=== PATIENT | male | born 1995 | race Caucasian/White ===

== ENCOUNTER 2018-06-02 13:22 | Emergency (ER) | payer BC ==
[2018-06-02 13:29] VITALS: BP 144/76
[2018-06-02] MEDS ORDERED: IBUPROFEN 600 MG TAB PO ONE (13:50)
--- NOTE | 2018-06-02 13:55 | EDPHY ---
H & P Time Seen by Provider: 06/02/18 13:38 HPI/ROS: CHIEF COMPLAINT: Fever HISTORY OF PRESENT ILLNESS: Patient did get a staple in his left index finger loose last week on Tuesday and he thought it might be related. On Tuesday started with a headache and some diffuse myalgias and body achiness associated with a nonproductive cough and a sore throat and congestion was started the next day. Today he has chills and still has a fever and he wondered if it was related to the stable. He does not have redness or swelling in the finger or hand. The index finger is a little bit swollen at the tip but does not look abnormal. REVIEW OF SYSTEMS: Eye: no change in vision ENT: HPI Cardiac: no chest pain or syncope Pulmonary: HPI not short of breath and no hemoptysis Abdomen: no vomiting, diarrhea, abdominal pain Musculoskeletal: Myalgias but no neck stiffness Skin: no rash Neuro: HPI Constitutional: HPI : no urinary symptoms A comprehensive 10 point review of systems is otherwise negative aside from elements mentioned in the history of present illness. PAST MEDICAL HISTORY: Negative Social history: No recent travel or IV drug abuse General Appearance: Alert and conversant, cooperative. Eyes: No scleral icterus. ENT, Mouth: Normal mucous membranes. Normal pharynx without trismus or erythema uvula is midline. Respiratory: Normal respiratory effort, breath sounds equal, lungs are clear to auscultation. Speaks in full sentences. Cardiovascular: Regular rate and rhythm. Gastrointestinal: Abdomen is soft and non tender. Neurological: Alert, face symmetric, normal motor and sensory in extremities. Skin: Warm and dry, no rashes. The index finger is not red or swollen or hot to the touch. He can make a fist. There is no lymphangitis. Puncture site is not draining any fluid. Musculoskeletal: Normal range of motion of the neck, supple Psychiatric: Not agitated. Emergency Department course/MDM: Patient presents with symptoms more likely to be viral syndrome or even quite possibly influenza. I think the puncture wound to his left hand is not related to his symptoms today and I think that likelihood of infection or systemic sepsis or endocarditis or meningitis is low. I discussed with the patient he could have influenza and we discussed risk benefit alternatives of oral Tamiflu treatment. He would prefer to be treated with Tylenol Motrin and oral fluids which I think is reasonable as he does not have comorbidities which would be hard indication for antiviral treatment. Smoking Status: Never smoked Constitutional: Initial Vital Signs Temperature (C) 37.9 C 06/02/18 13:25 Heart Rate 86 06/02/18 13:25 Respiratory Rate 18 06/02/18 13:25 Blood Pressure 144/76 H 06/02/18 13:25 O2 Sat (%) 95 06/02/18 13:25 O2 Delivery Mode Room Air Allergies/Adverse Reactions: Cephalosporins Allergy (Verified 06/02/18 13:25) Home Medications: Medication Instructions Recorded NK [No Known Home Meds] 06/02/18 Medical Decision Making - Data Points Medications Given: Discontinued Medications Ibuprofen (Motrin) 600 mg PO EDNOW ONE Stop: 06/02/18 13:51 Last Admin: 06/02/18 13:53 Dose: 600 mg Departure - Departure Disposition: Home, Routine, Self-Care Clinical Impression: Viral syndrome Condition: Good Instructions: Influenza (ED), Viral Syndrome (ED) Additional Instructions: Viral syndrome, possible influenza.Adult Pain & Fever Control: We recommend Acetaminophen (Tylenol) and Ibuprofen (Motrin,Advil) for pain and fever control. When fever is high or pain severe, both drugs can be used at the same time, but at different intervals. Please note the time differences. Your dose is: Acetaminophen 650mg every 4 to 6 hours Ibuprofen 600mg every 8 hours with food Please return right away if you get redness or swelling or pain or drainage from your finger or red streaks going up the arm, or difficulty making a fist with the left hand. Referrals: Anahy Bonilla MD [Primary Care Provider] - As per Instructions
== END 2018-06-02 14:01 | disposition home or self-care (01) ==
DX: B34.9 Viral infection, unspecified (principal)